=== PATIENT | female | born 1960 | race Caucasian/White ===

== ENCOUNTER 2018-05-29 07:31 | Inpatient (IN) ==
[2018-05-29] MEDS ORDERED: NS 1,000 ML IV ONE (07:37)
[2018-05-29 08:05] LABS: BE 0.1 mmoll (-3.0-3.0); BLOOD TYPE ARTERIAL; HCO3-(ACT) 24.9 mmoll (20.0-26.0); METHB 1.4 % (0.0-1.5); O2(CT) 17.8 mL/dL (15.0-23.0); O2HB 93.6 % (95.0-99.0); PCO2(98.6) 46 mmHg (35-45); PO2(98.6) 79 mmHg (60-100); SAMPLE BLOOD; SAO2 97.5 % (95.0-100.0); THB 13.5 g/dL (11.5-17.4); pH(98.6) 7.36 (7.35-7.45)
[2018-05-29] MEDS ORDERED: ZOFRAN ONE (08:06)
[2018-05-29 08:07] LABS: MODALITY CANNULA
[2018-05-29] MEDS ORDERED: ZOFRAN IV ONE (08:07)
[2018-05-29 08:09] LABS: ALLEN TEST YES
[2018-05-29 08:19] LABS: BASO# 0.02 X1000 (0.0-0.2); BASO% 0.1 % (0.0-0.8); EOS# 0.01 X1000 (0.0-0.7); EOS% 0.1 % (0.0-10.0); HEMATOCRIT 36.6 % (37.0-47.0); HEMOGLOBIN 12.5 g/dL (12.0-16.0); IMM GRAN# 0.05 X1000 (0.0-0.04); IMM GRAN% 0.3 % (0.0-0.5); LYMPH# 0.86 X1000 (1.2-3.4); LYMPH% 5.8 % (20.5-51.1); MCH 30.8 PG (27-31); MCHC 34.2 g/dL (33-37); MCV 90.1 FL (81-99); MONO# 1.43 X1000 (0.11-0.59); MONO% 9.7 % (1.7-9.3); NEUT# 12.41 X1000 (1.4-6.5); PLT 141 X1000 (130-400); RBC 4.06 XMIL (4.2-5.4); RDW 13.7 % (11.5-14.5); WBC 14.78 X1000 (4.8-10.8)
[2018-05-29 08:29] LABS: PROTIME 13.7 Seconds (11.0-16.0)
[2018-05-29 08:30] LABS: PTT 22.1 Seconds (22.3-41.8)
--- NOTE | 2018-05-29 08:31 | Diag Imaging Result Doc PS360 ---
EXAM: CHEST-1 VIEW HISTORY: ams TECHNIQUE: Chest single view COMPARISON: 04/17/2016 FINDINGS: Poor inspiratory effort. The heart is not enlarged. The vessels are not distended. There are no infiltrates. No effusion identified. There are scattered granuloma. The right hemidiaphragm is elevated. IMPRESSION: No acute abnormality. Electronically signed by Michael Hilton 05/29/2018 8:29 AM
[2018-05-29 08:34] LABS: ALBUMIN 2.6 g/dL (3.5-5.0); CALCIUM 7.3 mg/dL (8.8-10.2); CREATININE 3.2 mg/dL (0.5-0.9); POTASSIUM 3.7 mmol/L (3.5-5.1); TOTAL BILIRUBIN 0.6 mg/dL (0.20-1.00); TOTAL PROTEIN 5.3 g/dL (6.3-8.3)
[2018-05-29] MEDS ORDERED: HUMALOG IV ONE (08:43)
--- NOTE | 2018-05-29 08:51 | PROVIDER DOCUMENTATION ---
HPI-Fever - General Chief Complaint: Altered Mental Status Stated Complaint: AMS Time Seen by Provider: 05/29/18 07:31 Allergies/Adverse Reactions: Patient Allergies Allergy/AdvReac Type Severity Reaction Status Date / Time No Known Allergies Allergy Verified 01/21/15 07:36 Home Medications: Home Medication List Medication Instructions Recorded Confirmed Last Taken Type Metformin E.r. [Glucophage Xr] 1,000 mg PO BID CC 07/27/12 01/21/15 01/19/15 07:00 History Ciprofloxacin HCl [Cipro] 500 mg PO DAILY #14 tablet 01/21/15 Unknown Rx Metoclopramide [Reglan] 10 mg PO Q6HR #40 tablet 01/21/15 Unknown Rx Omeprazole 40 mg PO DAILY #30 capsule. 01/21/15 Unknown Rx Ondansetron [Ondansetron Odt] 4 mg PO Q4H PRN PRN #15 tab.rapdis 01/21/15 Unknown Rx - History of Present Illness-Fever Nature of Presenting Problem: has hx of t2dm has had ams this am sent to er has vomiting not sure she taking insulin or medications has been confused Review of Systems - Adult - REVIEW OF SYSTEMS - ADULT Constitutional: reports: chills, fever Eyes: reports: no symptoms reported Ears, Nose, Mouth & Throat: reports: no symptoms reported Cardiovascular: denies: chest pain Respiratory: reports: shortness of breath Gastrointestinal: reports: diarrhea, nausea, poor appetite, vomiting Genitourinary: reports: dysuria, frequency, incontinence Musculoskeletal: reports: no symptoms reported Integumentary: reports: no symptoms reported Neurological: reports: no symptoms reported Psychiatric: reports: other (altered mental status) Endocrine: reports: polyuria Hematologic/Lymphatic: reports: no symptoms reported Allergic/Immunologic: reports: no symptoms reported Past History - Adult - PAST MEDICAL HISTORY-ADULT Review of Records: reports: Nursing Assessment Review, Medications Reviewed, Social history reviewed & non-contributory. Cardiovascular: reports: HTN Respiratory: reports: denies history Gastrointestinal: reports: ulcer Genitourinary: reports: chronic UTI's Musculoskeletal: reports: denies history Psychiatric: reports: other (altered mental status) Endocrine/Immune: reports: Diabetes Diabetes Type: Type 2 Diabetes controlled by:: Insulin Dependent - PRIOR SURGERIES/PROCEDURES Surgical/Procedure History: reports: EGD (2013), colonoscopy (2013), cholecystectomy (open-1987), hysterectomy, , joint replacement (knee) - FAMILY HISTORY Family History: reviewed, not pertinent - SOCIAL HISTORY Smoking: denies Physical Exam-General - PHYSICAL EXAM-ADULT Initial Vital Signs Reviewed: Yes - CONSTITUTIONAL General Appearance: lethargic, slow to respond - EYES Eyes: PERRL/EOMI - HEAD, EARS, NOSE, MOUTH & THROAT HENMT: pharynx normal - NECK Neck: supple - RESPIRATORY Respiratory: lungs clear - CARDIOVASCULAR Cardiovascular: regular rate, rhythm - GASTROINTESTINAL (ABDOMEN) Abdominal Exam: non tender, soft - LYMPHATIC Lymphatic: no adenopathy - MUSCULOSKELETAL Back Exam: no CVA tenderness Extremity: normal range of motion - SKIN Integumentary: normal color, normal turgor - NEUROLOGIC Neurologic: grossly normal - PSYCHIATRIC Psych/Mental Status: disoriented x 3 Progress - PLAN OF CARE/RESULTS Progress/Plan/Lab Results: Vital Signs - 8 hr 05/29/18 07:31 Pulse Rate 82 Respiratory Rate 18 Blood Pressure 85/47 O2 Sat by Pulse Oximetry 90 L Orders Category Date Time Status Cardiac Monitoring DIRECTED Care 05/29/18 07:31 Active IV Insertion ORDERED Care 05/29/18 07:31 Active Notify MD of + Sepsis Screen NOW Care 05/29/18 07:31 Active Notify Physician As Ordered Care 05/29/18 07:31 Active CHEST-1 VIEW [RAD] Stat Exams 05/29/18 07:31 Completed BLOOD CULTURE [BLDCUL] Stat Lab 05/29/18 07:35 Ordered CBC WITH DIFF [HEME] Stat Lab 05/29/18 07:59 Completed CK PROFILE [SP CHEM] Stat Lab 05/29/18 07:59 Completed COMPREHENSIVE METABOLIC PANEL [CHEM] Stat Lab 05/29/18 07:59 Completed LACTATE, PLASMA [CHEM] Lab 05/29/18 10:45 Ordered LACTATE, PLASMA [CHEM] Lab 05/29/18 11:05 Completed LACTATE, PLASMA [CHEM] Lab 05/29/18 13:45 Uncollected PROTIME WITH INR [COAG] Stat Lab 05/29/18 07:59 Completed PTT [COAG] Stat Lab 05/29/18 07:59 Completed TROPONIN T Stat Lab 05/29/18 07:[address] W/POSS RFLX CULT [URINALYSIS] Stat Lab 05/29/18 08:46 Completed Oxygen Device Stat Oth 05/29/18 07:31 Active Result Diagrams: 05/29/18 07:59 05/29/18 07:59 - XRAY 1 XRAY Study: Chest Impression: Normal (FINDINGS: Poor inspiratory effort. The heart is not enlarged. The vessels are not distended. There are no infiltrates. No effusion identified. There are scattered granuloma. The right hemidiaphragm is elevated. IMPRESSION: No acute abnormality. Electronically signed by Michael Hilton 05/29/2018 8:29 AM) - CONSULTS/PCP/HOSPITALIST Notification #1 *Consult/PCP/Hospitalist*: Dr. German Time Discussed: 09:51 Reason/Comments: Sepsis; hyperglycemia; hx flu Consult Disposition: Admit Departure - Departure Date of Disposition Decision: 05/29/18 Time of Disposition Decision: 09:52 DIAGNOSIS: Hyperglycemia Sepsis Qualifiers: Sepsis type: sepsis due to unspecified organism Qualified Code(s): A41.9 - Sepsis, unspecified organism Disposition: ADMITTED INPATIENT 09 Certified Medical Emergency: Emergent Condition: Fair - Critical Care Note This patient required my direct & personal management of CC.: Yes Total Time (mins): 30 Critical Care Statement: This patient required my direct personal management to treat or rule out processes, the absence of which, could potentiallly result in sudden, clinically significant life or limb threatening deterioration. Attestation - Physician/ BHARATH Attestation Patient care was provided by Advanced Practice Provider:: No The physician spent face to face time with patient:: Yes Advanced Practice Provider documentation review:: Supervising physician onsite and consulted in the evaluation and care of this patient. The physician did have a face to face encounter with the patient.
[2018-05-29] MEDS ORDERED: HUMALOG (PARKWAY) ONE (08:58)
[2018-05-29 08:59] LABS: BILIRUBIN URINE NEGATIVE (NEGATIVE); BLOOD URINE NEGATIVE (NEGATIVE); CLARITY SL. CLOUDY (CLEAR); COLOR YELLOW; KETONE URINE TRACE mg/dL (NEGATIVE); LEUKOCYTES URINE 1+ (NEGATIVE); NITRITE URINE NEGATIVE (NEGATIVE); PROTEIN URINE 1+(30 mg/dL) mg/dL (NEGATIVE); URINE BACTERIA 2+ /HFP; URINE CAST NONE SEEN /LPF; URINE CRYSTAL NONE SEEN /HPF; URINE EPITHELIAL CELLS <10 /HPF (<10); URINE RBC <10 /HPF (<10); URINE SOURCE CATH; URINE WBC <10 /HPF (<10); URINE YEAST NONE SEEN /HPF; UROBILINOGEN URINE NORMAL
[2018-05-29] MEDS ORDERED: NS 2,000 ML IV ONE (09:23)
[2018-05-29] MEDS ORDERED: LEVAQUIN 500 MG in NS 100 ML IV ONE (09:31)
[2018-05-29] MEDS ORDERED: BASAGLAR SUBQ ONE (10:17)
[2018-05-29] MEDS ORDERED: INSULIN PEN NEEDLES ONE (10:25)
[2018-05-29 11:12] LABS: HEMOGLOBIN A1C 9.8 % (4.8-6.0)
--- NOTE | 2018-05-29 11:32 | HISTORY AND PHYSICAL ---
PRIMARY CARE PHYSICIAN: Dr. Nupur Jang. CHIEF COMPLAINT: Increased confusion and vomiting that began this a.m. HISTORY OF PRESENTING ILLNESS: This is a 57-year-old, female who presented to [facility] ER with complaints of increased confusion, vomiting. States that she got diagnosed by her primary care physician on Wednesday with the flu but that she was not prescribed Tamiflu because she was out of the window to administer it. When she arrived to the emergency room today, her blood pressure was 85/47. She was saturating 90% on room air. Her white count was 14.78. Her sodium was 121, potassium 3.7, chloride 79, BUN of 52, with a creatinine of 3.2, blood sugar was 796. Urinalysis showed 1+ white blood cells, 2+ bacteria, but negative nitrites. She also states she was diagnosed with a UTI at the primary care physician's office on Wednesday as well. Acetone level showed moderate. We did a chest x-ray that showed no acute abnormality so she will be admitted to the intensive care unit for further evaluation and treatment. PAST MEDICAL HISTORY: Diabetes type 2, hypertension, ulcer, and chronic UTIs. PAST SURGICAL HISTORY: Cholecystectomy, hysterectomy, section, and knee surgery. SOCIAL HISTORY: She currently lives with family. Denied any tobacco, alcohol, or illicit drug use. ALLERGIES: She has no known drug allergies. HOME MEDICATIONS: We will need to obtain a current list, reconcile, review and restart as appropriate. We will place an order for nursing to update and confirm home medications. LABORATORY DATA: Showed a white blood cell count of 14.78, hemoglobin 12.5, hematocrit 36.6, platelets 141,000. PT and INR of 13.7 and 1. ABG showed a pH of 7.36, pCO2 of 46, PO2 79, bicarb 24.9, and this was on 3 L via nasal cannula. Sodium of 121, potassium 3.7, chloride 79, CO2 25, anion gap of 17, BUN of 52, creatinine 3.2, glucose 796. Cardiac enzyme was negative. Urinalysis showed negative nitrite, 1+ white blood cells, 2+ bacteria. Acetone level was moderate. Chest x- ray showed no acute disease. REVIEW OF SYSTEMS: She denied any fever. She had some chills and body aches recently secondary to her flu. Denied any chest pain, coughing, shortness of breath. She did have increased confusion, nausea, vomiting. Denied any abdominal pain, constipation, diarrhea, burning or hurting with urination. PHYSICAL EXAMINATION: VITAL SIGNS: On arrival, she had a temperature of 94 degrees. That was rechecked 20 minutes later and was up to 99.4 so I am not sure if that first reading was correct. Pulse of 82, respirations 18, blood pressure 85/47, saturating 90% on room air. Currently, her blood pressure is 124/85. GENERAL: This is a 57-year-old, female who is sitting up in the bed, is able to answer most questions appropriately. Does have intermittent confusion at times. HEENT: Normocephalic, atraumatic. Normal ENT inspection. Oropharynx and nares are clear. Eyes: Pupils are equal, round, and reactive to light and accommodation. Extraocular movements are intact. NECK: Normal inspection. Normal range of motion. LUNGS: Clear to auscultation bilaterally with equal lung expansion and chest wall movement. HEART: Regular rate and rhythm. No murmurs, rubs, or gallops. ABDOMEN: Soft, nontender, nondistended. Bowel sounds are present x4 quadrants. MUSCULOSKELETAL: She has 5/5 strength x4 extremities. NEUROLOGICAL: The cranial nerves 2-12 appear grossly intact. ASSESSMENT: 1. Sepsis. 2. Altered mental status. 3. Diabetes type 2 with hyperglycemia, uncontrolled. 4. Acute kidney injury. 5. Hypotension. 6. Leukocytosis. 7. Possible urinary tract infection. 8. Recently diagnosed 2 days prior with flu. PLAN: She will be admitted to the intensive care unit. Field catheter has been placed. We are going to check a hemoglobin A1c. O2 per protocol. Blood cultures x2 and a urine culture is pending. Lactate level is pending. She was given a dose of Levaquin 500 mg IV x1 in the emergency room. She has received 2 L of normal saline in the emergency room and was given Humalog 15 units IV x1 in the emergency room. She will be placed on Rocephin 1 gram IV q.24. We will place her on q.4 hour fingerstick blood sugars with Humalog sliding scale. We need to update and confirm home medications and then we will review and restart as appropriate. Recheck CBC and BMP in the a.m. Further orders after seen by attending. Dictated by LORENE Pederson for Shaquille German MD cc: LORENE Pederson MD Lindsay Smith
[2018-05-29] MEDS: NS 1,000 ML IV SCH ×2 (11:44→19:48)
[2018-05-29] MEDS ORDERED: HUMALOG (PARKWAY) SUBQ ONE (12:18)
[2018-05-29 12:45] LABS: INFLUENZA A NEGATIVE (NEGATIVE); INFLUENZA B NEGATIVE (NEGATIVE)
--- NOTE | 2018-05-29 12:53 | HISTORY AND PHYSICAL ---
ADDENDUM: SUBJECTIVE: This morning, Ms. Martin refers to be feeling a little better. The brother and the were both at the bedside at the time of the encounter. Both of them agree that Ms. Martin looks a lot more conversational and more alert now. Ms. Martin was brought in early this morning because of altered mentation. She was recently treated for a UTI and flu but according to the , she was really not taking the medication because she was just having nauseation and vomiting. She was brought into the emergency department where she was evaluated and needs to be admitted. OBJECTIVE: Vital Signs: Blood pressure is 79/45, pulse is 77, respirations are 20, temperature is 97.5 degrees. General Examination: Ms. Martin is a 57-year-old, morbidly obese, female. She is in bed. She is not in any cardiopulmonary distress. HEENT: Mucosa is pink but dry. Anicteric. Acyanotic. Neck: Supple. Chest: Good air entry bilaterally. There were no crepitations, no rhonchi. Cardiovascular: Regular rate and rhythm. No murmurs, no rubs, no gallops. GI: Abdomen is soft. It is distended. There is an old right upper quadrant surgical scar consistent with a gallbladder removal. There is also mild tenderness in the lower abdomen. Bowel sounds are present. There is no hepatosplenomegaly. Extremities: No pedal edema. Distal pulses are present. [employer]ER: The patient is kind of lethargic but easily arousable and will have a rational conversation but then go back to sleep. Laboratory Data: WBC was 14.78, hemoglobin is 12.5, platelet count of 141,000. Chemistry is also reviewed. Sodium is 121, potassium is 3.7, chloride is 78, bicarb is 25, BUN is 57, and creatinine is 3.2 which is fairly new. A chest x-ray was unremarkable. ASSESSMENT: 1. Altered mental status on presentation secondary to toxic metabolic encephalopathy. We will continue addressing the underlying issues. 2. Sepsis syndrome. Source of infection is currently unclear. Unsure if this is just a response to the current metabolic milieu. The patient has been started on Rocephin due to a presumed urinary tract infection. If the culture of the urine and the blood cultures are negative, we will discontinue the antibiotic coverage. 3. Severe uncontrolled diabetes mellitus with a presenting A1c of 9.8. The patient is currently on an insulin regimen. We will continue with the hydration and re-evaluate her BMP every 4 hours. 4. Acute kidney injury secondary to volume depletion. We will continue with the fluids. 5. Recently diagnosed flu. 6. Hypotension, presumably due to volume depletion from excessive vomiting. However, an underlying sepsis induced cannot be completely ruled out. The patient is currently on antibiotics and she is also getting fluid resuscitation. We will re-evaluate frequently. PLAN: In general, I think Ms. Martin seems to be doing fairly okay. She is going to be admitted to the ICU for close monitoring. We will continue with the IV fluids at 150 mL per hour. We will re-evaluate her BMP every 4 hours. She will continue to be on Rocephin at least for now until we have the blood cultures and the urine cultures negative. We will also do flu testing to rule out any ongoing influenza. I have explained the plan in details to the patient and the as well as a brother who were all at the bedside at the time of the encounter. They voiced understanding. All their concerns and questions have been answered. Critical care time: 45 minutes cc: Shaquille German MD MTDD
[2018-05-29] MEDS ORDERED: HUMALOG (PARKWAY) SUBQ PRN (13:26)
[2018-05-29 13:55] LABS: CREATININE 2.7 mg/dL (0.5-0.9); POTASSIUM 3.4 mmol/L (3.5-5.1)
[2018-05-29] MEDS: HUMULIN 70/30 (PARKWAY) SUBQ SCH (17:39)
[2018-05-29 18:09] LABS: CALCIUM 6.9 mg/dL (8.8-10.2); CREATININE 2.5 mg/dL (0.5-0.9); POTASSIUM 3.8 mmol/L (3.5-5.1)
[2018-05-29] MEDS: ZOFRAN IV PRN (18:21)
[2018-05-29 21:23] LABS: CALCIUM 6.9 mg/dL (8.8-10.2); CREATININE 2.3 mg/dL (0.5-0.9); POTASSIUM 3.5 mmol/L (3.5-5.1)
[2018-05-30] MEDS: NS 1,000 ML IV SCH ×3 (02:30→20:23)
[2018-05-30] MEDS: HUMALOG (PARKWAY) SUBQ SCH ×4 (06:17→20:22)
[2018-05-30 06:55] LABS: BASO# 0.02 X1000 (0.0-0.2); BASO% 0.2 % (0.0-0.8); EOS# 0.09 X1000 (0.0-0.7); EOS% 0.8 % (0.0-10.0); HEMATOCRIT 36.7 % (37.0-47.0); HEMOGLOBIN 12.3 g/dL (12.0-16.0); IMM GRAN# 0.05 X1000 (0.0-0.04); IMM GRAN% 0.4 % (0.0-0.5); LYMPH# 0.97 X1000 (1.2-3.4); LYMPH% 8.3 % (20.5-51.1); MCH 30.4 PG (27-31); MCHC 33.5 g/dL (33-37); MCV 90.8 FL (81-99); MONO# 1.59 X1000 (0.11-0.59); MONO% 13.6 % (1.7-9.3); MPV 12.9 FL (7.4-10.4); NEUT# 8.93 X1000 (1.4-6.5); NEUT% 76.7 % (42.2-75.2); PLT 135 X1000 (130-400); RBC 4.04 XMIL (4.2-5.4); RDW 13.5 % (11.5-14.5); WBC 11.65 X1000 (4.8-10.8)
[2018-05-30 07:21] LABS: ALBUMIN 2.3 g/dL (3.5-5.0); CALCIUM 7.2 mg/dL (8.8-10.2); CREATININE 1.8 mg/dL (0.5-0.9); POTASSIUM 3.2 mmol/L (3.5-5.1); TOTAL BILIRUBIN 0.4 mg/dL (0.20-1.00); TOTAL PROTEIN 5.8 g/dL (6.3-8.3)
[2018-05-30] MEDS: HUMULIN 70/30 (PARKWAY) SUBQ SCH ×2 (08:12→17:54)
[2018-05-30] MEDS: LEVEMIR INSULIN *HA SUBQ SCH ×2 (09:39→20:22)
[2018-05-30] MEDS: COREG PO SCH ×2 (09:40→20:22)
[2018-05-30] MEDS: CELEXA PO SCH (09:40)
[2018-05-30] MEDS: ROCEPHIN 1 GM in NS 50 ML IV SCH (09:40)
[2018-05-30] MEDS: VICTOZA SUBQ SCH (10:27)
[2018-05-30] MEDS: LYRICA PO SCH ×2 (13:37→20:22)
[2018-05-30] MEDS: ZOFRAN IV PRN ×2 (16:18→21:35)
[2018-05-30] MEDS: TESSALON PO PRN (16:18)
[2018-05-30] MEDS: DESYREL PO PRN (21:35)
--- NOTE | 2018-05-30 22:48 | PROGRESS NOTE ---
DATE: 05/30/2018 SUBJECTIVE: Patient still complains of nausea and occasional vomiting however then she states that she needs to eat that she is hungry. PHYSICAL: Temperature 98, pulse 83, respiratory 20, BP 97/55.General: Patient is awake, she in no current respiratory distress. She is still somewhat ill-appearing. She does not answer questions appropriately. HEENT: Normocephalic. Neck: Supple. CV: Regular rate. Chest: Clear. Abdomen: Soft, nondistended, diffusely but minimally tender. Extremities: Moves all extremities. ASSESSMENT: 1. Sepsis, appears resolved. 2. Altered mental status. Patient still seems somewhat confused. She is difficult to get to answer questions. 3. Diabetes with very poor home control an A1c of 9.6. 4. Acute kidney injury. 5. Hypotension. 6. Leukocytosis. PLAN: Will continue Rocephin, IV fluids, will advance diet as tolerated. Will transfer to the floor. Further orders as needed. cc: Korey Forman MD
[2018-05-31] MEDS: NS 1,000 ML IV SCH ×3 (03:34→20:40)
[2018-05-31] MEDS: LYRICA PO SCH ×3 (06:29→20:41)
[2018-05-31] MEDS: HUMALOG (PARKWAY) SUBQ SCH ×4 (06:29→20:40)
[2018-05-31] MEDS: VICTOZA SUBQ SCH (09:47)
[2018-05-31] MEDS: LEVEMIR INSULIN *HA SUBQ SCH ×2 (09:48→20:42)
[2018-05-31] MEDS: COREG PO SCH ×2 (09:48→20:41)
[2018-05-31] MEDS: ROCEPHIN 1 GM in NS 50 ML IV SCH (09:48)
[2018-05-31] MEDS: HUMULIN 70/30 (PARKWAY) SUBQ SCH ×2 (09:49→17:06)
[2018-05-31] MEDS: CELEXA PO SCH (09:53)
[2018-05-31] MEDS: ZOFRAN IV PRN (10:24)
[2018-05-31] MEDS: TESSALON PO PRN ×2 (11:16→20:42)
[2018-05-31] MEDS ORDERED: CALMOSEPTINE OINTMENT TOP ONE (16:31)
[2018-05-31] MEDS ORDERED: CALMOSEPTINE OINTMENT TOP PRN (16:44)
[2018-05-31] MEDS ORDERED: G.I. COCKTAIL PO ONE (16:50)
[2018-05-31] MEDS: PRILOSEC PO SCH (20:41)
[2018-05-31] MEDS: DESYREL PO PRN (20:45)
--- NOTE | 2018-05-31 22:04 | PROGRESS NOTE ---
DATE: 05/31/2018 SUBJECTIVE: The patient notes that her abdomen still hurts, but she is not quite as nauseated. She did tolerate clear liquids last night. She is still wanting to eat. PHYSICAL EXAMINATION: Vital signs: Temperature 98.1 degrees, pulse 78, respiratory 20, BP 120/59. General: The patient is an obese female who is in no current respiratory distress. She does appear to be more alert and oriented this morning than she was yesterday. HEENT: Normocephalic. Neck: Supple. Cardiovascular: Regular rate. Chest: Clear. Abdomen: Soft. Diffusely tender. No masses. Extremities: Moves all extremities. Neurologic: No focal changes. ASSESSMENT: 1. Sepsis, resolved. 2. Altered mental status, appears resolved. 3. Diabetes with poor home control, with an A1c of 9.6. 4. Acute kidney injury, appears resolved. 5. Hypotension, resolved. 6. Abdominal pain. 7. Nausea and vomiting. PLAN: We will continue Rocephin. We will advance diet to full liquid. Hopefully, she will continue to improve and can be discharged home. cc: Korey Forman MD
[2018-06-01] MEDS: NS 1,000 ML IV SCH (05:31)
[2018-06-01] MEDS: PRILOSEC PO SCH (06:06)
[2018-06-01] MEDS: LYRICA PO SCH ×2 (06:06→12:46)
[2018-06-01] MEDS: TESSALON PO PRN (06:11)
[2018-06-01] MEDS: HUMALOG (PARKWAY) SUBQ SCH ×2 (06:16→11:50)
[2018-06-01] MEDS ORDERED: NS 1,000 ML IV ONE (06:27)
[2018-06-01] MEDS: COREG PO SCH (09:03)
[2018-06-01] MEDS: CELEXA PO SCH (09:03)
[2018-06-01] MEDS: VICTOZA SUBQ SCH (09:05)
[2018-06-01] MEDS: HUMULIN 70/30 (PARKWAY) SUBQ SCH (09:05)
[2018-06-01] MEDS: LEVEMIR INSULIN *HA SUBQ SCH (09:06)
[2018-06-01] MEDS: ROCEPHIN 1 GM in NS 50 ML IV SCH (09:10)
--- NOTE | 2018-06-01 09:45 | PROGRESS NOTE ---
DATE: 06/01/2018 SUBJECTIVE: Patient notes that she is feeling a little bit better. She is still having some cough and congestion, still having abdominal pain which she thinks is more due to coughing. OBJECTIVE: Vital signs: Temperature 94, pulse 75, respiratory rate 20, and BP 160/59. General: Patient is awake and alert currently in no respiratory distress although she is coughing on exam. HEENT: Normocephalic. Neck: Supple. Cardiovascular: Regular rate. Lungs: Chest is clear and nonlabored. No wheezing. Abdomen: Soft. Positive bowel sounds diffusely but minimally tender. Extremities: Moves all extremities. Neurologic: No changes. ASSESSMENT: 1. Nausea and vomiting improved. 2. Coughing. 3. Morbid obesity. 4. Acute metabolic encephalopathy improved. 5. Diabetes. Blood sugars are improved. A1c chronically 9.8. Blood sugars currently 90 to 150. PLAN: We will advance her diet. We will continue to follow. Hopefully, she can be discharged home today or over the next day or 2 if symptoms improve. cc: Korey Forman MD
[2018-06-01 11:45] VITALS: BP 169/63
[2018-06-01] MEDS: ZOFRAN IV PRN (12:46)
--- NOTE | 2018-06-02 14:21 | DISCHARGE SUMMARY ---
ADMISSION DATE: 05/29/2018 DISCHARGE DATE: 06/01/2018 ADMISSION DIAGNOSES: 1. Sepsis. 2. Altered mental status. 3. Type 2 diabetes, uncontrolled. 4. Acute kidney injury. 5. Hypotension. 6. Leukocytosis. 7. Recent flu diagnosis. DISCHARGE DIAGNOSES: 1. Sepsis. 2. Altered mental status. 3. Type 2 diabetes, uncontrolled. 4. Acute kidney injury. 5. Hypotension. 6. Leukocytosis. 7. Recent flu diagnosis. DIAGNOSTIC PROCEDURES AND FINDINGS: Chest x-ray 05/29/2018: No acute abnormality. HOSPITAL COURSE: Ms. Martin is a 57-year-old female with a history of diabetes mellitus which is poorly controlled who presented to [facility] with increased confusion and vomiting. She reports recently being diagnosed with the flu but was not prescribed Tamiflu as she was out of the window. When she got to the [facility] she was noted to be hypotensive and hypoxic with a creatinine of 3.2 and a blood sugar of 796. She was admitted to our ICU for sepsis, she required fluid resuscitation and broad-spectrum antibiotic coverage. We also did give her IV insulin for her hyperglycemia. She was not noted to be in DKA on arrival. Blood cultures and urine cultures were negative for the duration of her admission. She improved greatly with IV fluids and antibiotics. She was treated with Rocephin for what was felt to be a UTI although culture data was negative. She did complete her antibiotics and is now stable for discharge home. DISCHARGE MEDICATIONS: 1. Tessalon Perles 100 mg p.o. every 8 hours as needed. 2. Citalopram 10 mg daily. 3. Levemir FlexTouch 70 units subcutaneously b.i.d. 4. Humalog KwikPen 60 units subcutaneously b.i.d. 5. Potassium 10 mEq p.o. daily. 6. Trazodone 25 mg p.o. at bedtime as needed. 7. Phenergan 25 mg p.o. every 6 to 8 hours as needed. 8. Coreg 6.25 mg. 9. Lyrica 150 mg p.o. t.i.d. 10.Valsartan hydrochlorothiazide 1 daily. 11.Atrovent HFA 2 puffs inhaled 4 times a day. DISCHARGE DIET: Diabetic heart healthy. DISCHARGE ACTIVITY: Resume activity as tolerated. DISPOSITION AND OTHER DISCHARGE INSTRUCTIONS: The patient is discharged home to self-care. She is to follow up with Dr. Jang on Wednesday for a recheck of her kidney function as she did come in with a significant SARAH with no history of renal dysfunction but after fluids that did improve significantly. We would just have her follow up to make sure that it is continuing to trend down back to normal. Otherwise, she is to continue all medications as directed and return to the E.R. or call 911 for worsening complaints or concerns. DISCHARGE LABS: Most recent discharge labs from 05/30/2018: WBC was 11.65, hemoglobin 12.3, hematocrit 36.7, and platelet count 135. Sodium was 134, potassium 3.2, chloride 96, CO2 27, anion gap 11, BUN 45, creatinine 1.8, and glucose 295. Hemoglobin A1c was 9.8. Protein was 5.8 and albumin 2.3. Influenza negative. Dictated by LORENE Hernandez for Korey Forman MD cc: LORENE Hernandez MD Lindsay E. Smith, MD
== END 2018-06-01 14:39 | disposition home or self-care (01) | DRG 872 ==
LOC: P.ED 07:31 → SUATTDRO 07:32 → P.EDIPHOLD 07:32 → P.MEDSURG 05-30 18:59
PROVIDERS: ATTEND Family Medicine
CPT/HCPCS: 51702; 71010; 71045; 80048; 80053; 81001; 82009; 82550; 82805; 82948; 83036; 83605; 84484; 85025; 85610; 85730; 87040; 87088; 87275; 87276; 87804; 94761; 96361; 96365; 96375; 99285; A9270; J0696; J1815; J1956; J2405; J7030; XXXXX